=== PATIENT | male | born 1945 | race Caucasian/White ===

== ENCOUNTER → 2016-12-01 | Outpatient (CLI) | payer OTHER ==
[2016-12-01 15:35] LABS: HEMATOCRIT 41.6 % (42-52); MEAN CELL VOLUME 92.7 fL (80-100); MEAN CORPUSCULAR HEMOGLOBIN 31.4 pg (25-34); MEAN CORPUSCULAR HGB CONC 33.9 g/dl (32-36); MEAN PLATELET VOLUME 9.1 fL (7.4-10.4); PLATELET COUNT 134 K/uL (130-400); RED BLOOD COUNT 4.49 M/uL (4.7-6.1); WHITE BLOOD COUNT 4.79 K/uL (4.8-10.8)
[2016-12-01 15:53] LABS: ALT/SGPT 29 U/L (12-78); AST/SGOT 20 U/L (15-37); BLOOD UREA NITROGEN 13 mg/dl (7-18); BUN/CREATININE RATIO 9.1 (10-20); CALCIUM 10.1 mg/dl (8.5-10.1); CARBON DIOXIDE 29 mmol/L (21-32); CHLORIDE 106 mmol/L (98-107); GLUCOSE 91 mg/dl (70-99); POTASSIUM 4.4 mmol/L (3.5-5.1); SODIUM 143 mmol/L (136-145)
[2016-12-01 15:58] LABS: ALB/GLOB RATIO 1.1 (0.9-2); ALKALINE PHOSPHATASE 100 U/L (45-117); CHOLESTEROL 150 mg/dl (0-200); CHOLESTEROL/HDL RATIO 2.8; FERRITIN 28.7 ng/ml (8.0-388.0); HDL CHOLESTEROL 53 mg/dl; LDL CHOLESTEROL CALCULATED 70 mg/dl; TRIGLYCERIDES 133 mg/dl (0-150); VERY LOW DENSITY LIPOPROT CALC 27 mg/dl
== END | disposition home or self-care (01) ==
LOC: C.LAB1850 14:21
PROVIDERS: ATTEND Internal Medicine
DX: D50.9 Iron deficiency anemia, unspecified (principal); I51.9 Heart disease, unspecified; E78.5 Hyperlipidemia, unspecified

== ENCOUNTER → 2017-12-02 | Outpatient (CLI) | payer OTHER ==
[~2017-12-02] MED LIST: OPTIRAY 320 IV PRN
--- NOTE | 2017-12-02 14:01 | DIAGNOSTIC IMAGING REPORT ---
ABDOMEN AND PELVIS CT WITH IV AND ORAL CONTRAST CT DOSE: 1041.05 mGycm HISTORY: Left lower quadrant abdominal pain. TECHNIQUE: Multiaxial CT images of the abdomen and pelvis were performed following the use of intravenous and oral contrast. A dose lowering technique was utilized adhering to the principles of ALARA. COMPARISON STUDY: None. FINDINGS: Bibasilar linear densities consistent with subsegmental atelectasis. Poststernotomy changes. No pneumoperitoneum. No pneumatosis. No fractures within the visualized osseous structures. A small diverticulum at the third portion of the duodenum. No evidence for bowel obstruction. Normal appendix. Cholecystectomy. The liver, spleen, adrenal glands, and pancreas are unremarkable. Moderate bilateral cortical renal thinning. Mild bilateral perinephric edema which is likely chronic. No hydronephrosis. No retroperitoneal lymphadenopathy. Normal bladder. Colonic diverticulosis. Mild inflammatory change adjacent to a thickened diverticulum within the mid descending colon best seen on image 210. This is consistent with acute diverticulitis. No perforation or abscess identified. IMPRESSION: 1. Mild acute diverticulitis within the mid descending colon. No perforation or abscess at this time. 2. No evidence for bowel obstruction. 3. Normal appendix. 4. Cholecystectomy. Electronically signed by: Ed Ordonez M.D. 12/02/2017 2:00 PM Dictated Date/Time: 12/02/2017 1:54 PM
== END | disposition home or self-care (01) ==
LOC: C.CTS 13:06
PROVIDERS: ATTEND Registered Nurse
DX: R10.32 Left lower quadrant pain (principal)